=== PATIENT | male | born 1975 | race Caucasian/White ===

== ENCOUNTER 2021-06-15 09:47 | Emergency (ER) | payer BC ==
[~2021-06-15] VITALS: Ht 185.4 cm; Wt 120.2 kg
[2021-06-15] MEDS ORDERED: CEPHALEXIN500 MG PO (11:08)
[2021-06-15 11:10] VITALS: BP 176/92
== END 2021-06-15 11:10 | disposition home or self-care (01) ==
LOC: M.ERS 09:47
DX: S92.511A Displaced fracture of proximal phalanx of right lesser toe(s), initial encounter for closed fracture (principal); S90.424A Blister (nonthermal), right lesser toe(s), initial encounter; B35.3 Tinea pedis; I10 Essential (primary) hypertension; G62.9 Polyneuropathy, unspecified; Z98.890 Other specified postprocedural states; W22.8XXA Striking against or struck by other objects, initial encounter; Y93.89 Activity, other specified; Y92.89 Other specified places as the place of occurrence of the external cause; Y99.9 Unspecified external cause status